=== PATIENT | male | born 1965 | race American Indian/Alaskan Native ===

== ENCOUNTER 2017-04-04 14:33 | Emergency (ER) | payer SELFPAY ==
[2017-04-04 15:03] LABS: Hematocrit 40.3 % (35.5-45.6); Hemoglobin 13.6 gm/dl (11.8-15.2); Mean Corpuscular HGB Conc 34 % (32-34); Mean Corpuscular Hemoglobin 33 pg (28-32); Mean Corpuscular Volume 99 fl (84-94); Platelet Count 115 K/mm3 (140-440); Red Blood Count 4.08 M/mm3 (3.65-5.03); Red Cell Distribution Width 14.5 % (13.2-15.2); White Blood Count 6.2 K/mm3 (4.5-11.0)
[2017-04-04 15:19] LABS: Anion Gap 19 mmol/L; BUN/Creatinine Ratio 18.33; Blood Urea Nitrogen 22 mg/dL (9-20); Calcium 8.8 mg/dL (8.4-10.2); Carbon Dioxide 22 mmol/L (22-30); Chloride 102.2 mmol/L (98-107); Glucose 114 mg/dL (75-100); Potassium 3.6 mmol/L (3.6-5.0); Sodium 140 mmol/L (137-145)
--- NOTE | 2017-04-04 15:55 | Cat Scan Report ---
CT HEAD WITHOUT CONTRAST INDICATION: Headache. COMPARISON: None similar. FINDINGS: Noncontrast head CT demonstrates normal ventricles and sulci without acute or recent infarct, hemorrhage, mass effect or midline shift. No abnormal extra-axial fluid collections. Posterior fossa structures and basilar cisterns appear within normal limits. Symmetric eye globes. Slight leftward nasal septal bowing. Clear paranasal sinuses and mastoid air cells. Intact calvarium. Normal overlying scalp soft tissues. CONCLUSION: No acute intracranial CT abnormality, as described. Please note that MRI/MRA or CTA better detect other etiologies, including an aneurysm, if warranted. Thank you for the opportunity to participate in this patient's care.
[2017-04-05] MEDS ORDERED: TORADOL IM ONE (02:20)
[2017-04-05] MEDS ORDERED: PERCOCET 5/325 PO ONE (02:20)
[2017-04-05] MEDS ORDERED: ZOFRAN ODT PO ONE (02:21)
[2017-04-05 03:48] VITALS: BP 102/68
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
== END 2017-04-05 04:10 | disposition home or self-care (01) ==
LOC: ED 14:33
DX: G44.329 Chronic post-traumatic headache, not intractable (principal); F32.9 Major depressive disorder, single episode, unspecified; I25.2 Old myocardial infarction; F17.200 Nicotine dependence, unspecified, uncomplicated
CPT/HCPCS: 36415; 70450; 80048; 85027; 96372; 99284; J1885; Q0162

== ENCOUNTER 2017-07-29 18:29 | Emergency (ER) | payer SELFPAY ==
--- NOTE | 2017-07-29 21:01 | XRay Report ---
FINAL REPORT EXAM: XR FOOT 3+V RT HISTORY: foot pain,FALL OFF ROOF COMPARISON: None available. FINDINGS: Three views of right foot obtained. There are comminuted fractures through the bases of the 2nd, 3rd, 4th metatarsal bones. There separation of the 1st and 2nd metatarsal bones concerning for injury to the Lisfranc ligament. Remote fracture of the 2nd metatarsal body and neck. Mild narrowing of the interphalangeal joints and 1st MTP joint. Plate screw fixation of the distal fibula. IMPRESSION: Comminuted fractures through the bases of the 2nd, 3rd, 4th metatarsal bones. There is separation of the 2nd and 1st metatarsal bones concerning for injury of Lisfranc ligament.
--- NOTE | 2017-07-29 21:02 | XRay Report ---
FINAL REPORT EXAM: XR ANKLE 3+V RT HISTORY: r/o fx from fall off roof COMPARISON: Right foot from the same date. FINDINGS: Three views of right ankle obtained. Ankle mortise is preserved. Prior plate screw fixation the distal fibula. Surgical hardware appears intact. No acute fracture of the ankle. Partial visualization of patient's known fractures through the bases of the metatarsal bones. IMPRESSION: Partial visualization of patient's known metatarsal fractures. No acute fracture of the right ankle.
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
--- NOTE | 2017-07-29 22:07 | XRay Report ---
FINAL REPORT EXAM: XR KNEE 3V RT HISTORY: RT KNEE PAIN/SWELLING COMPARISON: None available. FINDINGS: 4 total images of right knee obtained. Mild narrowing hypertrophic spurring of the patellofemoral joint space. Mild marginal osteophyte lateral joint space compartment. No acute fracture dislocation. Small suprapatellar effusion. Small superior patellar enthesophyte. IMPRESSION: No acute bony abnormality. Mild degenerative changes. Small suprapatellar effusion.
[2017-07-29 22:16] LABS: Basophils % (Auto) 0.6 % (0.0-1.8); Eosinophils % (Auto) 2.2 % (0.0-4.3); Hematocrit 37.2 % (35.5-45.6); Hemoglobin 12.5 gm/dl (11.8-15.2); Mean Corpuscular HGB Conc 34 % (32-34); Mean Corpuscular Hemoglobin 33 pg (28-32); Mean Corpuscular Volume 98 fl (84-94); Platelet Count 130 K/mm3 (140-440); Red Cell Distribution Width 13.5 % (13.2-15.2); White Blood Count 8.4 K/mm3 (4.5-11.0)
[2017-07-29 22:26] LABS: INR 1.06 (0.87-1.13)
[2017-07-29 22:27] LABS: Partial Thromboplastin Time 31.2 Sec. (24.2-36.6)
[2017-07-29 22:38] LABS: Alanine Aminotransferase 29 units/L (7-56); Albumin 3.9 g/dL (3.9-5); Albumin/Globulin Ratio 1.3 %; Alkaline Phosphatase 77 units/L (35-129); Anion Gap 18 mmol/L; BUN/Creatinine Ratio 17; Blood Urea Nitrogen 19 mg/dL (9-20); Calcium 8.4 mg/dL (8.4-10.2); Carbon Dioxide 25 mmol/L (22-30); Chloride 100.5 mmol/L (98-107); Glucose 105 mg/dL (75-100); Potassium 3.5 mmol/L (3.6-5.0); Sodium 140 mmol/L (137-145)
[2017-07-30] MEDS ORDERED: TORADOL IM ONE (02:08)
[2017-07-30] MEDS ORDERED: ANCEF IM ONE (02:10)
[2017-07-30 02:14] VITALS: BP 113/54
[2017-07-30] MEDS ORDERED: WATER FOR INJ (PF) 10 ML ONE (02:52)
== END 2017-07-30 02:50 | disposition home or self-care (01) ==
LOC: ED 18:29
DX: S93.324A Dislocation of tarsometatarsal joint of right foot, initial encounter (principal); S92.331A Displaced fracture of third metatarsal bone, right foot, initial encounter for closed fracture; X58.XXXA Exposure to other specified factors, initial encounter; Y93.9 Activity, unspecified; Y99.9 Unspecified external cause status; Y92.009 Unspecified place in unspecified non-institutional (private) residence as the place of occurrence of the external cause
CPT/HCPCS: 36415; 73562; 73610; 73630; 80053; 85025; 85610; 85730; 96372; 99283; J0690; J1885

== ENCOUNTER 2018-05-14 10:57 | Inpatient (IN) | payer SELFPAY ==
[2018-05-14] MEDS ORDERED: ASPIRIN PO ONE (11:17)
[2018-05-14] MEDS ORDERED: ALUM-MAG HYDROX-SIMETH 200-200-20MG/5ML PO ONE (11:40)
[2018-05-14] MEDS ORDERED: LIDOCAINE VISCOUS 2% PO ONE (11:40)
[2018-05-14 11:41] LABS: Basophils % (Auto) 0.3 % (0.0-1.8); Eosinophils # (Auto) 0.1 K/mm3 (0.0-0.4); Eosinophils % (Auto) 0.7 % (0.0-4.3); Hematocrit 37.3 % (35.5-45.6); Hemoglobin 12.4 gm/dl (11.8-15.2); Lymphocytes # (Auto) 0.9 K/mm3 (1.2-5.4); Lymphocytes % (Auto) 11.7 % (13.4-35.0); Mean Corpuscular HGB Conc 33 % (32-34); Mean Corpuscular Hemoglobin 34 pg (28-32); Mean Corpuscular Volume 102 fl (84-94); Monocytes # (Auto) 0.5 K/mm3 (0.0-0.8); Monocytes % (Auto) 6.4 % (0.0-7.3); Platelet Count 104 K/mm3 (140-440); Red Blood Count 3.68 M/mm3 (3.65-5.03)
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
[2018-05-14 12:04] LABS: BUN/Creatinine Ratio 16; Blood Urea Nitrogen 14 mg/dL (9-20); Calcium 9.3 mg/dL (8.4-10.2); Hemolysis Index 2
--- NOTE | 2018-05-14 12:16 | XRay Report ---
ROUTINE CHEST, TWO VIEWS: HISTORY: chest pain. The trachea, heart, mediastinal contour, lung new and bony thorax are unremarkable. Linear densities in the lower lung zones have resolved since 10/09/16 which probably represent discoid atelectasis. IMPRESSION: Unremarkable chest x-ray.
[2018-05-14] MEDS ORDERED: PERCOCET 5/325 PO PRN (20:40)
[2018-05-14] MEDS ORDERED: MORPHINE IV PRN (20:40)
[2018-05-14] MEDS ORDERED: ZOFRAN IV PRN (20:40)
[2018-05-14] MEDS ORDERED: TYLENOL PO PRN (20:40)
[2018-05-14] MEDS ORDERED: SODIUM CHLORIDE FLUSH SYRINGE 10 ML IV PRN (20:40)
[2018-05-14] MEDS: ZOLOFT PO SCH (21:37)
[2018-05-14] MEDS: SODIUM CHLORIDE FLUSH SYRINGE 10 ML IV SCH (22:56)
[2018-05-14] MEDS: PEPCID IV SCH (22:56)
[2018-05-15 03:32] LABS: BUN/Creatinine Ratio 18; Blood Urea Nitrogen 16 mg/dL (9-20); Hemolysis Index 10
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
[2018-05-15] MEDS ORDERED: LEXISCAN IV ONE ×2 (08:16→09:00)
[2018-05-15] MEDS ORDERED: HABITROL TD SCH (10:00)
[2018-05-15] MEDS ORDERED: PEPCID PO SCH (11:00)
[2018-05-15] MEDS: ZOLOFT PO SCH (11:24)
[2018-05-15] MEDS: PEPCID IV SCH (11:25)
[2018-05-15] MEDS: SODIUM CHLORIDE FLUSH SYRINGE 10 ML IV SCH (11:25)
--- NOTE | 2018-05-15 11:39 | Discharge Summary ---
Providers - Providers Date of Admission: 05/14/18 17:47 Attending physician: PRINCESS LEONE MD Primary care physician: BILLING SERVICES MANAGER Hospitalization Condition: Stable Disposition: DC-01 TO HOME OR SELFCARE Core Measure Documentation - Palliative Care Palliative Care/ Comfort Measures: Not Applicable Exam - Constitutional Vitals: Temp Pulse Resp BP Pulse Ox 97.9 F 86 20 130/67 99 05/15/18 07:40 05/15/18 09:07 05/15/18 07:40 05/15/18 09:07 05/15/18 07:40 Plan Activity: advance as tolerated, fall precautions Diet: low cholesterol Special Instructions: record daily BP diary Follow up with: PRIMARY CARE, [Primary Care Provider] - 7 Days
[2018-05-15 12:03] VITALS: BP 104/42
--- NOTE | 2018-05-16 03:17 | Treadmill Report ---
INDICATION: Chest pain. ORDERING PHYSICIAN: Humera Albarran MD FINDINGS: There is no scintigraphic evidence of myocardial ischemia. The left ventricle is mildly dilated. There is normal wall motion and wall thickening. The left ventricular ejection fraction is measured at 47%. CONCLUSION: 1. No scintigraphic evidence of myocardial ischemia. 2. Mildly dilated left ventricular cavity with the left ventricular ejection fraction measured at 47%. JOB# [id number] GARCIA/ABUNDIO
== END 2018-05-15 13:20 | disposition home or self-care (01) | DRG 313 ==
LOC: ED 10:57 → 4A 17:47
PROVIDERS: ADMIT Internal Medicine; ATTEND Internal Medicine
DX: R07.9 Chest pain, unspecified (principal); I51.7 Cardiomegaly; D69.6 Thrombocytopenia, unspecified; F32.9 Major depressive disorder, single episode, unspecified; D75.89 Other specified diseases of blood and blood-forming organs; F20.9 Schizophrenia, unspecified; F17.210 Nicotine dependence, cigarettes, uncomplicated; I25.2 Old myocardial infarction; Z82.49 Family history of ischemic heart disease and other diseases of the circulatory system; Z79.899 Other long term (current) drug therapy
CPT/HCPCS: 36415; 71046; 78452; 80048; 83036; 84484; 85025; 93005; 93010; 93017; A9502; J2785

== ENCOUNTER 2021-06-10 09:38 | Emergency (ER) | payer OTHER ==
[2021-06-10 10:27] VITALS: BP 109/55
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
== END 2021-06-10 14:00 | disposition home or self-care (01) ==
LOC: ED 09:38
DX: S02.40FA Zygomatic fracture, left side, initial encounter for closed fracture (principal); S02.401A Maxillary fracture, unspecified side, initial encounter for closed fracture; F32.9 Major depressive disorder, single episode, unspecified; F17.200 Nicotine dependence, unspecified, uncomplicated; Z79.899 Other long term (current) drug therapy; Y04.8XXA Assault by other bodily force, initial encounter; Y93.89 Activity, other specified; Y92.89 Other specified places as the place of occurrence of the external cause; Y99.8 Other external cause status
CPT/HCPCS: 70486; 71046; 99284